=== PATIENT | male | born 1980 | race Two or more races ===

== ENCOUNTER 2021-03-31 13:24 | Inpatient (IN) | payer OTHER ==
[~2021-03-31] VITALS: Ht 167.6 cm; Wt 90.7 kg
[2021-03-31] MEDS ORDERED: ZESTRIL10 M1 (13:43)
--- NOTE | 2021-03-31 13:44 | NUR ---
PACIENTE MASCULINO ALERTA Y ORIENTADO REFIERE TENER DOLOR DE DIVERTICULOS, REFERIDO POR LA DRA. PRASHANT MAR.
--- NOTE | 2021-03-31 17:24 | NUR ---
SE ORIENTA A PTE SOBRE PROCESO DE VENOPUNCION, PIYUSH DE MUESTRAS, ADMINISTRACION DE MEDICAMENTOS Y CONTRASTE PO. PTE REFIERE ENTENDER INF TAMIE SE MANTIENE EN OBSERVACION POR TERMINAR CONTRASTE.
--- NOTE | 2021-04-01 01:57 | NUR ---
SE RECIBE PTE ALERTA Y ORIENTADA X3 EN DEEJAY ACOMPANADA DE FAMILIAR. PTE CON H/L X2 LOS CUALES SE ENCUENTRAN PATENTES Y LIBRES DE EDEMA. PTE CON UNIDADES DE PRBC Y PLAQUETAS PARA TRANSFUNDIR. PTE EN ESPERA DE CONSULTA CON . Jessica/BEE. PTE SE CONTINUA MONITORIANDO POR CAMBIOS.
--- NOTE | 2021-04-01 02:02 | NUR ---
SE RECIBE PTE ALERTA Y ORIENTADO X3 EN DEEJAY. PTE CON H/L COLOCADO EL CUAL SE ENCUENTRA PATENTE. PTE CON IV FL;UIDS COLOCADOS, PTE CONSULTADO CON DRA JUAREZ. PTE SE CONTINUA MONITORIANDO POR CAMBIOS.
--- NOTE | 2021-04-01 07:14 | NUR ---
SE RECIBE PTE ALERTA, ORIENTADO EN KIM SATHISH ESFERAS. PTE EN DEEJAY CON BARANDAS ELEVADAS EN POSICION SEMI-BROOKS. AL MOEMTNO PTE SE OBSERVA CON BUEN PATRON RESPIRATORIO. NO REFIERE DOLOR. VENOPUNCION PATENTE Y LEATHA DE EDEMA Y ERITEMA RECIBIENDO TERAPIA IVFS. PENDIENTE CONSULTA CON DRA. MAR.
[2021-04-05] MEDS ORDERED: CIPROFLOXACIN500 MG (09:28)
[2021-04-05] MEDS ORDERED: METRONIDAZOLE500 MG (09:28)
== END 2021-04-10 13:11 | disposition home or self-care (01) | DRG 392 ==
LOC: ER 13:24 → SEC-K 04-01 09:21 → SURG 04-02 14:46
PROVIDERS: ADMIT Surgery; ATTEND Surgery
PROC: 0W9G30Z Drainage of Peritoneal Cavity with Drainage Device, Percutaneous Approach (ICD-10-PCS; principal; 2021-04-05)
DX: K57.20 Diverticulitis of large intestine with perforation and abscess without bleeding (principal); N32.1 Vesicointestinal fistula; I10 Essential (primary) hypertension; Z20.822 Contact with and (suspected) exposure to COVID-19

== ENCOUNTER 2021-04-29 07:05 | Outpatient (CLI) | payer OTHER ==
[~2021-04-29 07:05] MED LIST: CIPROFLOXACIN500 MG; METRONIDAZOLE500 MG; ZESTRIL10 M1
== END 2021-04-29 07:15 | disposition home or self-care (01) ==
LOC: TOM 07:05
PROVIDERS: ATTEND Surgery
DX: R10.84 Generalized abdominal pain (principal); K57.20 Diverticulitis of large intestine with perforation and abscess without bleeding

== ENCOUNTER 2021-06-07 10:00 | Inpatient (IN) | payer OTHER ==
[~2021-06-07] VITALS: Ht 170.2 cm; Wt 10.4 kg
[2021-06-07] MEDS ORDERED: AMOXI PO (13:25)
[2021-06-09] MEDS ORDERED: AMOX-CLAV 875-1 EAC1 (13:04)
[2021-06-14] MEDS ORDERED: NEURONTIN300 MG PO (12:27)
[2021-06-14] MEDS ORDERED: AMOX1TAB5 PO (12:28)
[2021-06-14] MEDS ORDERED: ULTRAM50 MG PO (12:28)
== END 2021-06-14 13:17 | disposition home or self-care (01) | DRG 330 ==
LOC: SURH 06-09 10:00 → O/R 06-09 11:32 → SURH 06-09 13:00 → SURG 06-10 14:37
PROVIDERS: ADMIT Surgery; ATTEND Surgery
PROC: 0DTP4ZZ Resection of Rectum, Percutaneous Endoscopic Approach (ICD-10-PCS; 2021-06-09)
PROC: 0W9J40Z Drainage of Pelvic Cavity with Drainage Device, Percutaneous Endoscopic Approach (ICD-10-PCS; 2021-06-09)
PROC: 0T9B40Z Drainage of Bladder with Drainage Device, Percutaneous Endoscopic Approach (ICD-10-PCS; 2021-06-09)
PROC: 0TQB4ZZ Repair Bladder, Percutaneous Endoscopic Approach (ICD-10-PCS; 2021-06-09)
PROC: 0DTN4ZZ Resection of Sigmoid Colon, Percutaneous Endoscopic Approach (ICD-10-PCS; principal; 2021-06-09 13:00)
PROC: BT00ZZZ Plain Radiography of Bladder (ICD-10-PCS; 2021-06-14)
DX: K57.20 Diverticulitis of large intestine with perforation and abscess without bleeding (principal); N32.1 Vesicointestinal fistula; I10 Essential (primary) hypertension; Z80.0 Family history of malignant neoplasm of digestive organs; Z82.49 Family history of ischemic heart disease and other diseases of the circulatory system; F43.20 Adjustment disorder, unspecified

== ENCOUNTER 2025-07-07 07:08 | Outpatient (CLI) | payer OTHER ==
[~2025-07-07 07:08] MED LIST changes: +AMOX-CLAV 875-1 EAC1; +AMOX1TAB5 PO; +AMOXI PO; +NEURONTIN300 MG PO; +ULTRAM50 MG PO
== END 2025-07-07 07:18 | disposition home or self-care (01) ==
LOC: TOM 07:08
PROVIDERS: ATTEND Surgery
DX: K57.30 Diverticulosis of large intestine without perforation or abscess without bleeding (principal); R10.32 Left lower quadrant pain; R10.12 Left upper quadrant pain